=== PATIENT | male | born 1975 | race Two or more races ===

== ENCOUNTER 2019-09-17 10:36 | Inpatient (IN) | payer MEDICAID ==
[~2019-09-17] VITALS: Ht 170.2 cm; Wt 77.6 kg
--- NOTE | 2019-09-17 10:45 | NUR ---
RN MS NOTES RECEIVED PT FROM [facility]IA [facility] ACCOMPLANIED BY 2 AMBULANCE PERSONNEL, PT IS AWAKE, ALERT AND ORIENTED, REPORTS MID EPIGASTRIC PAIN 8/10, NO SHORTNESS OF BREATH, NO COMPLAINT OF NAUSEA, ASSISTED TO BED, MADE COMFORTABLE, ROOM SET UP ORIENTATION PROVIDED TO PT, VERBALIZED UNDERSTANDING, KEPT COMFORTABLE IN BED, AWAITING ADMITTING ORDERS FROM , DR. ROSARIO AND DR. Constantino MEDINA INFORMED.
[2019-09-17] MEDS ORDERED: Z GUARD REMEDY 2 OZ OINT TP PRN (12:00)
[2019-09-17] MEDS ORDERED: ACETAMINOPHEN 325 MG TABLET PO PRN (12:00)
[2019-09-17] MEDS ORDERED: MAGNESIUM HYDROXIDE 30 ML UDC PO PRN (12:00)
[2019-09-17] MEDS ORDERED: PIPERACILLIN /TAZOBACTAM 4.5 G in IV D5W 50 ML IV SCH (12:00)
[2019-09-17] MEDS ORDERED: HYDROCODONE/APAP 5/325MG 1 EACH TABLET PO PRN (12:00)
[2019-09-17] MEDS ORDERED: MAG HYDROX/AL HYDROX/SIMETH 30 ML UDC PO PRN (12:00)
[2019-09-17] MEDS: IV NS 0.9% 1,000 ML IV PRN (12:26)
--- NOTE | 2019-09-17 12:38 | NUR ---
RN MS NOTES PT IN BED, AWAKE, ALERT AND ORIENTED, NOT IN DISTRESS, [employer]' MODEL AT BEDSIDE, PLAN OF CARE BEING DISCUSSED WITH PT, VERBALIZED UNDERSTANDING.
[2019-09-17] MEDS: MORPHINE SULFATE INJ 2 MG/ML DISP.SYRIN IV PRN ×3 (12:45→20:38)
[2019-09-17] MEDS ORDERED: LEVOFLOXACIN (750 MG) 750 MG TABLET PO SCH (15:00)
[2019-09-17] MEDS: LEVOFLOXACIN 750 MG /D5W 150ML 750 MG in PREMIX 1 EA IV SCH (15:17)
[2019-09-17 16:00] VITALS: BP 112/63
[2019-09-17] MEDS: METRONIDAZOLE 500MG/ NS 100ML 500 MG in PREMIX 1 EA IV SCH (17:21)
--- NOTE | 2019-09-17 18:33 | NUR ---
RN MS NOTES PT IN BED, RESTING, PAIN MEDICATION GIVEN FOR PAIN MANAGEMENT, BREATHING PATTERN NORMAL, CALL LIGHT WITHIN REACH, IV FLUIDS INFUSING WELL, STARTED ON IV ATB LEVAQUIN AND FLAGYL, TOLERATED WELL, NO ADVERSE REACTION NOTED, PER DR. ROSARIO, KEEP PT NPO, NOTED AND CARRIED OUT, PT INFORMED, NO COMPLAINT OF NAUSEA OR VOMITING, ALL NEEDS ATTENDED.
--- NOTE | 2019-09-17 19:15 | NUR ---
M/S RN NOTES PATIENT RESTING IN BED, NO RESPIRATORY DISTRESS, PAIN TOLERABLE AT THIS TIME. NO N/V, SKIN WARM TO TOUCH, IV ACCESS SITE INTACT AND PATENT IV NS INFUSING AT 75ML/HR. PATIENT'S NEEDS ATTENDED, BED ON LOWEST LOCKED POSITION, CALL LIGHT WITHIN REACH. WILL CONTINUE TO MONITOR.
[2019-09-18] MEDS: METRONIDAZOLE 500MG/ NS 100ML 500 MG in PREMIX 1 EA IV SCH ×3 (00:39→17:44)
[2019-09-18] MEDS: MORPHINE SULFATE INJ 2 MG/ML DISP.SYRIN IV PRN ×6 (01:59→23:07)
[2019-09-18] MEDS: IV NS 0.9% 1,000 ML IV PRN ×2 (05:45→22:14)
[2019-09-18 06:12] LABS: BASOPHILS % (AUTO) 0.4 % (0.0-2.0); EOSINOPHILS % (AUTO) 4.5 % (0.0-6.0); HEMATOCRIT 41 % (39-51); HEMOGLOBIN 13.8 g/dL (13.5-17.5); LYMPHOCYTES # (AUTO) 2.1 /CMM (0.8-4.8); LYMPHOCYTES % (AUTO) 39.5 % (20.0-44.0); MEAN CORPUSCULAR HGB CONC 34 g/dl (31.0-36.0); MEAN CORPUSCULAR VOLUME 93 fL (80-96); MONOCYTES # (AUTO) 0.5 /CMM (0.1-1.30); MONOCYTES % (AUTO) 9.3 % (2.0-12.0); NEUTROPHILS # (AUTO) 2.5 /CMM (1.8-8.9); NEUTROPHILS % (AUTO) 46.3 % (43.0-81.0); PLATELET COUNT (AUTO) 172 /CMM (150-450); RED BLOOD CELL COUNT(AUTO) 4.37 MIL/uL (4.5-6.0); WHITE BLOOD COUNT (AUTO) 5.4 K/uL (4.3-11.0)
[2019-09-18 06:34] LABS: ALBUMIN 2.7 g/dL (3.4-5.0); BILIRUBIN,TOTAL 0.4 mg/dL (0.2-1.0); MAGNESIUM 1.9 mg/dL (1.8-2.4); PHOSPHORUS 3.4 mg/dL (2.5-4.9); POTASSIUM 3.9 mmol/L (3.5-5.1); TOTAL PROTEIN, SERUM 5.6 g/dL (6.4-8.2)
--- NOTE | 2019-09-18 06:49 | NUR ---
M/S RN NOTES PATIENT RESTING IN BED, NO RESPIRATORY DISTRESS, PAIN TOLERABLE AT THIS. SKIN WARM TO TOUCH, IV ACCESS SITE INTACT AND PATENT. PATIENT'S NEEDS ATTENDED, BED ON LOWEST LOCKED POSITION, CALL LIGHT WITHIN REACH. WILL ENDORSE TO ONCOMING NURSE
[2019-09-18 08:00] VITALS: BP 100/63
--- NOTE | 2019-09-18 08:00 | NUR ---
MS/RN OPENING NOTE Patient is resting in bed, A/O x4, showing no signs of acute distress or SOB, saturating 100% on RA. Patient is complaining of 8/10 pain in his lower abdominal area. IV line is clean and intact running NS @ 75ml/hr. Bed is in lowest position, side rails x2 in upright position, call light is within reach and patient is aware of how to call for assistance when needed. Will continue with plan of care.
[2019-09-18] MEDS: LEVOFLOXACIN 750 MG /D5W 150ML 750 MG in PREMIX 1 EA IV SCH (15:18)
[2019-09-18 16:59] VITALS: BP 112/72
--- NOTE | 2019-09-18 19:05 | NUR ---
MS RN NOTES RECEIVED PT IN BED AWAKE AND ABLE TO MAKE NEEDS KNOWN. PT A/O X3. RESPIRATIONS EVEN AND UNLABORED WITH NO S/S OF ACUTE DISTRESS OR SOB NOTED. NO COMPLAINTS OF PAIN AT THIS TIME. PT NOTED WITH IV RAC 20G PATENT AND INTACT INFUSING NS 75CC/HR. SAFETY MEASURES IN PLACE WITH BED IN LOWEST LOCKED POSITION WITH SIDE RAILS UP X2. CALL LIGHT WITHIN REACH. WILL CONTINUE TO MONITOR.
--- NOTE | 2019-09-18 19:32 | NUR ---
MS/RN CLOSING NOTE Patient is resting in bed, A/O x4, showing no signs of acute distress or SOB, saturating 100% on RA. IV line is clean and intact running NS @ 75ml/hr. Bed is in lowest position, side rails x2 in upright position, call light is within reach and patient is aware of how to call for assistance when needed.All patient needs met, all due meds given. Will endorse to clinical editor.
[2019-09-18] MEDS: ONDANSETRON HCL/PF 4 MG/2 ML VIAL IVP PRN (19:43)
[2019-09-18 20:09] VITALS: BP 109/75
[2019-09-19] MEDS: ZOLPIDEM TARTRATE 5 MG TABLET PO PRN ×2 (00:23→21:18)
[2019-09-19] MEDS: METRONIDAZOLE 500MG/ NS 100ML 500 MG in PREMIX 1 EA IV SCH ×3 (01:35→16:18)
[2019-09-19] MEDS: MORPHINE SULFATE INJ 2 MG/ML DISP.SYRIN IV PRN ×4 (05:44→20:36)
--- NOTE | 2019-09-19 07:13 | NUR ---
MS RN NOTES PT IN BED AWAKE AND ABLE TO MAKE NEEDS KNOWN. PT A/O X3. RESPIRATIONS EVEN AND UNLABORED WITH NO S/S OF ACUTE DISTRESS OR SOB NOTED THROUGHOUT SHIFT. NO COMPLAINTS OF PAIN AT THIS TIME. PT NOTED WITH IV RAC 20G PATENT AND INTACT INFUSING NS 75CC/HR. SAFETY MEASURES IN PLACE WITH BED IN LOWEST LOCKED POSITION WITH SIDE RAILS UP X2. CALL LIGHT WITHIN REACH. WILL ENDORSE TO ONCOMING NURSE FOR CHLOÉ.
--- NOTE | 2019-09-19 07:32 | NUR ---
RN OPENING NOTE PT WAS RECEIVED IN BED AT LOWEST AND LOCKED POSITION WITH SIDE RAILS X2, A/O X3 BREATHING EVEN AND UNLABORED ON RA WITH NO S/S OF ANY DISTRESS OR PAIN NOTED AT THIS TIME, IV IS PATENT AND INTACT WITH IVF RUNNING, ON CLEAR LIQUIDS AND INFORMED BY PT THAT HE WAS ABLE TO TOLERATE SOME LIQUID BUT STATED HE PROBABLY ATE TO FAST WHICH CAUSE SOME DISCOMFORT, SAFETY PRECAUTIONS IN PLACE, CALL LIGHT IN REACH, WILL MONITOR ACCORDINGLY
[2019-09-19 09:16] VITALS: BP 105/65
[2019-09-19 09:38] LABS: BASOPHILS % (AUTO) 0.5 % (0.0-2.0); EOSINOPHILS % (AUTO) 4.7 % (0.0-6.0); HEMATOCRIT 44 % (39-51); HEMOGLOBIN 14.8 g/dL (13.5-17.5); LYMPHOCYTES # (AUTO) 1.6 /CMM (0.8-4.8); LYMPHOCYTES % (AUTO) 32.4 % (20.0-44.0); MEAN CORPUSCULAR HGB CONC 34 g/dl (31.0-36.0); MEAN CORPUSCULAR VOLUME 93 fL (80-96); MONOCYTES # (AUTO) 0.5 /CMM (0.1-1.30); MONOCYTES % (AUTO) 9.3 % (2.0-12.0); NEUTROPHILS # (AUTO) 2.6 /CMM (1.8-8.9); NEUTROPHILS % (AUTO) 53.1 % (43.0-81.0); PLATELET COUNT (AUTO) 198 /CMM (150-450); RED BLOOD CELL COUNT(AUTO) 4.73 MIL/uL (4.5-6.0)
[2019-09-19 09:51] LABS: CALCIUM, SERUM 8.5 mg/dL (8.5-10.1); CREATININE 1.2 mg/dL (0.6-1.3); POTASSIUM 4.3 mmol/L (3.5-5.1)
[2019-09-19] MEDS: LEVOFLOXACIN 750 MG /D5W 150ML 750 MG in PREMIX 1 EA IV SCH (14:06)
[2019-09-19 17:04] VITALS: BP 119/74
--- NOTE | 2019-09-19 18:18 | NUR ---
RN CLOSING NOTE PT IN BED AT LOWEST AND LOCKED POSITION WITH SIDE RAILS X2, A/O X3 BREATHING EVEN AND UNLABORED ON RA WITH NO DISTRESS OR PAIN AT THIS TIME, IV IS PATENT AND INTACT WITH IVF RUNNING, SAFETY PRECAUTIONS IN PLACE, CALL LIGHT IN REACH, ALL NEEDS ATTENDED TO, WILL ENDORSE TO NIGHT RN FOR CHLOÉ.
--- NOTE | 2019-09-19 19:50 | NUR ---
MS RN NOTE: PATIENT RESTING IN BED, NO ACUTE DISTRESS NOTED. BREATHING EVEN AND UNLABORED, NO SOB NOTED. IV TO RAC IN PLACE. BED LOCKED AND IN LOWEST POSITION, CALL LIGHT IN REACH. WILL CONTINUE TO MONITOR.
[2019-09-19 20:09] VITALS: BP 114/70
[2019-09-19] MEDS: IV NS 0.9% 1,000 ML IV PRN (20:36)
--- NOTE | 2019-09-19 20:40 | NUR ---
MS RN NOTE: PATIENT COMPLAINS OF ABDOMINAL PAIN 03/29, MORPHINE 1MG IV GIVEN PER MD ORDER. WILL CONTINUE TO MONITOR.
--- NOTE | 2019-09-19 21:20 | NUR ---
MS RN NOTE: PATIENT REQUEST FOR SLEEPING MEDICATION, AMBIEN 5MG ORAL GIVEN PER MD ORDER. WILL CONTINUE TO MONITOR.
[2019-09-20] MEDS: METRONIDAZOLE 500MG/ NS 100ML 500 MG in PREMIX 1 EA IV SCH ×3 (00:19→16:01)
[2019-09-20] MEDS: MORPHINE SULFATE INJ 2 MG/ML DISP.SYRIN IV PRN ×5 (00:27→20:21)
--- NOTE | 2019-09-20 00:35 | NUR ---
MS RN NOTE: PATIENT COMPLAINS OF ABDOMINAL PAIN 03/29, MORPHINE 1MG IV GIVEN PER MD ORDER. WILL CONTINUE TO MONITOR.
--- NOTE | 2019-09-20 06:05 | NUR ---
MS RN NOTE: PATIENT RESTING IN BED, NO ACUTE DISTRESS NOTED. BREATHING EVEN AND UNLABORED, NO SOB NOTED. IV TO RAC IN PLACE, INFUSING NS AT 75ML/HR. BED LOCKED AND IN LOWEST POSITION, CALL LIGHT IN REACH. WILL ENDORSE TO DAY NURSE TO CONTINUE WITH PLAN OF CARE.
--- NOTE | 2019-09-20 06:45 | NUR ---
MS RN NOTE: PATIENT COMPLAINS OF ABDOMINAL PAIN 03/29, MORPHINE 1MG IV GIVEN PER MD ORDER. WILL ENDORSE TO DAY NURSE.
--- NOTE | 2019-09-20 07:10 | NUR ---
RN OPENING NOTE PT WAS RECEIVED IN BED AT LOWEST AND LOCKED POSITION WITH SIDE RAILS X2, A/O X4 BREATHING EVEN AND UNLABORED ON RA WITH NO S/S OF ANY DISTRESS OR PAIN NOTED AT THIS TIME, IV IS PATENT AND INTACT WITH IVF RUNNING, ON FULL LIQUIDS, SAFETY PRECAUTIONS IN PLACE, CALL LIGHT IN REACH, WILL MONITOR ACCORDINGLY
[2019-09-20 08:00] VITALS: BP 117/80
[2019-09-20] MEDS: IV NS 0.9% 1,000 ML IV PRN (11:03)
[2019-09-20] MEDS: LEVOFLOXACIN 750 MG /D5W 150ML 750 MG in PREMIX 1 EA IV SCH (14:44)
--- NOTE | 2019-09-20 14:44 | NUR ---
RN NOTE PT WAS SEEN BY SHAHLA SIMMONS FROM SURGICAL TEAM AT THIS TIME AND CLEARED FROM THEIR STANDPOINT
[2019-09-20 16:00] VITALS: BP 112/65
--- NOTE | 2019-09-20 19:00 | NUR ---
MS RN NOTE RECEIVED PT IN STABLE CONDITION A/O X4, NOTED IN BED WATCHING TV. NO SIGNS OF SOB OR DISTRESS, NO C/O PAIN OR N/V. IV IN R HAND #[address] WITH IVF INFUSING. ALL CURRENT NEEDS ATTENDED TO. BED LOW, LOCKED, UPPER RAILS UP AND CALL LIGHT WITHIN REACH. WILL CONT. TO MONITOR.
[2019-09-20] MEDS: ONDANSETRON HCL/PF 4 MG/2 ML VIAL IVP PRN (19:23)
[2019-09-20 20:00] VITALS: BP 108/68
[2019-09-20] MEDS: ZOLPIDEM TARTRATE 5 MG TABLET PO PRN (21:17)
[2019-09-21] MEDS: METRONIDAZOLE 500MG/ NS 100ML 500 MG in PREMIX 1 EA IV SCH ×2 (00:11→09:19)
[2019-09-21] MEDS: MORPHINE SULFATE INJ 2 MG/ML DISP.SYRIN IV PRN ×5 (00:20→20:40)
[2019-09-21] MEDS: IV NS 0.9% 1,000 ML IV PRN (05:41)
--- NOTE | 2019-09-21 06:42 | NUR ---
MS RN NOTE PT REMAINS IN STABLE CONDITION A/O X4, NOTED RESTING IN BED. NO SIGNS OF SOB OR DISTRESS, NO C/O PAIN OR N/V. IV IN R HAND #[address] WITH IVF INFUSING. ALL CURRENT NEEDS ATTENDED TO. BED LOW, LOCKED, UPPER RAILS UP AND CALL LIGHT WITHIN REACH. WILL CONT. TO MONITOR AND ENDORSE TO NEXT SHIFT FOR CHLOÉ.
--- NOTE | 2019-09-21 07:50 | NUR ---
MS/RN NOTE THE PATIENT IS RECEIVED IN BED. PATIENT IS ALERT AND ORIENTED X4. IN ROOM AIR AND DENIES SOB. RESPIRATION REGULAR AND UNLABORED. THE PATIENT COMPLAINS OF ABDOMINAL PAIN 7 BUT DOES NOT WANT TO TAKE PAIN MEDICATION AT THIS TIME BECAUSE HE TOOK MORPHINE 2 HOURS AGO. ABDOMEN IS SOFT AND NON-DISTENDED. THE PATIENT STATED THAT HE PASSES GAS. RIGHT HAND G 20 PATENT AND NS INFUSING AT 75ML/HR AND NO S/S INFILTRATION NOTED. BED LOW AND LOCKED. SIDE RAILS UP X3. CALL LIGHT WITHIN REACH. WILL CONTINUE TO MONITOR.
[2019-09-21 08:00] VITALS: BP 109/67
[2019-09-21] MEDS ORDERED: LEVO750T46 PO (10:34)
[2019-09-21] MEDS ORDERED: METR500T PO (10:34)
--- NOTE | 2019-09-21 11:58 | NUR ---
MS/RN NOTE REGIONAL DRIVER JESSIE IS MADE AWARE THAT THE PATIENT STILL COMPLAINS OF ABDOMINAL PAIN 02/26. RECEIVED NEW ORDER OF STAT CT ABDOMEN/PELVIS WITH PO AND IV CONTRAST. THE ORDER IS NOTED AND CARRIED OUT. PATIENT IS MADE AWARE.
[2019-09-21] MEDS ORDERED: DIATR MEGLU/DIATRIZOATE SODIUM 30 ML BOTTLE (GASTROGRAPHIN) ONE (13:04)
[2019-09-21] MEDS ORDERED: LEVOFLOXACIN (250MG) 250 MG TABLET PO SCH ×2 (14:30)
[2019-09-21] MEDS ORDERED: CT SWABBABLE VALVE TRANS SET 1 EA INFUS.SET MC ONE (17:37)
[2019-09-21] MEDS ORDERED: IOHEXOL-300 100 ML VIAL IV ONE (17:37)
[2019-09-21] MEDS ORDERED: IV NS 0.9% 250 ML IV ONE (17:37)
[2019-09-21] MEDS: METRONIDAZOLE 500 MG TABLET PO SCH (18:09)
--- NOTE | 2019-09-21 18:37 | NUR ---
MS/RN NOTE THE PATIENT IS IN BED. ALERT AND ORIENTED X4. IN ROOM AIR AND SATURATION IS AT 97%. RESPIRATION REGULAR AND UNLABORED. DENIES SOB. DENIES PAIN. ABDOMEN SOFT AND NON-DISTENDED. RIGHT HAND G 20 PATENT AND NS INFUSING AT 75ML/HR AND NO S/S INFILTRATION NOTED. LAC G 18 PATENT AND SALINE LOCKED. BED LOW AND LOCKED. SIDE RAILS UP X3. CALL LIGHT WITHIN REACH. STILL WAITING CT ABDOMEN AND PELVIS RESULTS TO FOLLOW UP TO CLEARANCE FOR DISCHARGE. PM SHIFT WILL BE ENDORSED.
--- NOTE | 2019-09-21 19:55 | NUR ---
RN OPENING NOTES RECEIVED REPORT FROM DAYSHIFT RN JONATHAN. FOUND Pt AWAKE, RESTING IN BED. NO S/S OF ACUTE DISTRESS OR SOB NOTED. Pt IS C/O PAIN AT THIS TIME, WILL CHECK WHEN THE NEXT PAIN MED IS DUE. Pt IS A/OX4, VERBAL, ABLE TO MAKE NEEDS KNOWN. IV ACCESS ON AND #20G, IVF NS RUNNING @75ML/HR; 2ND IV SITE LOCATED ON [facility], [place]. SAFETY MEASURES IN PLACE. BED LOW, LOCKED, HOB ELEVATED, SIDE RAILS UP, CALL LIGHT AND BEDSIDE TABLE WITHIN REACH. BED ALARM ON. WILL CONTINUE TO MONITOR Pt's CONDITION ANS SAFETY THROUGHOUT THE NIGHT.
[2019-09-21 20:00] VITALS: BP 113/64
[2019-09-21 21:00] VITALS: BP 113/64
[2019-09-21] MEDS: ZOLPIDEM TARTRATE 5 MG TABLET PO PRN (22:49)
[2019-09-22] MEDS: METRONIDAZOLE 500 MG TABLET PO SCH ×2 (01:07→08:32)
[2019-09-22] MEDS: MORPHINE SULFATE INJ 2 MG/ML DISP.SYRIN IV PRN (01:38)
[2019-09-22] MEDS: IV NS 0.9% 1,000 ML IV PRN (04:59)
--- NOTE | 2019-09-22 06:58 | NUR ---
RN CLOSING NOTES NO SIGNIFICANT CHANGES IN Pt's CONDITION. NO S/S OF ACUTE DISTRESS OR SOB NOTED DURING THE NIGHT. Pt REMAINED STABLE PER BASELINE. ALL NEEDS MET AND ATTENDED TO. SAFETY MEASURES IN PLACE. Pt RESTING IN BED. WILL ENDORSE TO DAYSHIFT RN FOR Pt's CHLOÉ.
--- NOTE | 2019-09-22 07:40 | NUR ---
MS/RN NOTE THE PATIENT IS RECEIVED IN BED. PATIENT IS ALERT AND ORIENTED X4. IN ROOM AIR AND DENIES SOB. RESPIRATION REGULAR AND UNLABORED. DENIES PAIN. THE PATIENT IS IN NO APPARENT DISTRESS. RIGHT HAND G 20 PATENT AND NS INFUSING AT 75ML/HR AND NO S/S INFILTRATION NOTED. LAC G 18 PATENT AND SALINE LOCKED. BED LOW AND LOCKED. SIDE RAILS UP X3. CALL LIGHT WITHIN REACH. WILL CONTINUE TO MONITOR.
[2019-09-22 08:00] VITALS: BP 130/68
--- NOTE | 2019-09-22 14:30 | NUR ---
MS/RN NOTE THE PATIENT IS ALERT AND ORIENTED X4. DENIES PAIN. ABDOMEN SOFT AND NON-DISTENDED. RESPIRATION EVEN AND UNLABORED. DENIES SOB. THE PATIENT IN NO APPARENT DISTRESS. DISCHARGE EDUCATION PROVIDED TO THE PATIENT AND HE VERBALIZED UNDERSTANDING. THE PATIENT IS GIVEN PRESCRIPTION AND COPY IS KEPT IN THE CHART. THE PATIENT LEFT THE HOSPITAL ON [facility]BER AND IN STABLE CONDITION.
== END 2019-09-22 18:24 | disposition home or self-care (01) | DRG 254 ==
LOC: MEDSG2 10:36
PROVIDERS: ADMIT Internal Medicine; ATTEND Student in an Organized Health Care Education/Training Program
DX: K35.80 Unspecified acute appendicitis (principal); K56.7 Ileus, unspecified; K76.0 Fatty (change of) liver, not elsewhere classified; Z98.890 Other specified postprocedural states; V89.2XXS Person injured in unspecified motor-vehicle accident, traffic, sequela
CPT/HCPCS: 36415; 80048-TC; 80053-TC; 80061-TC; 83735-TC; 84100-TC; 85025-TC; 87081-TC; A4216; G0378; J1956; J2270; J2405; J2543; J7030; J7050; J7060; Q9963; Q9967

== ENCOUNTER 2019-11-05 10:44 | Emergency (ER) | payer MEDICAID ==
[~2019-11-05] VITALS: Ht 170.2 cm; Wt 74.8 kg
[~2019-11-05 10:44] MED LIST: LEVO750T46 PO; METR500T PO
--- NOTE | 2019-11-05 10:50 | NUR ---
Patient came in to the er c/o left middle finger pain s/p hit a gas pedal while cleaning his car 02/26 ps, on room air, breathing evenly and unlabored. kept comfortable, will continue to monitor accordingly.
[2019-11-05] MEDS ORDERED: KETOROLAC TROMETHAMINE INJ 30 MG/ML VIAL ONE (11:10)
[2019-11-05 11:30] VITALS: BP 125/81
[2019-11-05] MEDS ORDERED: KETOROLAC TROMETHAMINE INJ 60 MG/2 ML VIAL IM ONE (11:30)
--- NOTE | 2019-11-05 11:30 | NUR ---
Patient discharged to home in stable condition. Written and verbal after care instructions given. Patient verbalizes understanding of instruction.
== END 2019-11-05 11:30 | disposition home or self-care (01) ==
LOC: ER 10:45
DX: S63.693A Other sprain of left middle finger, initial encounter (principal); Z98.890 Other specified postprocedural states; Z88.1 Allergy status to other antibiotic agents; W22.8XXA Striking against or struck by other objects, initial encounter; Y93.89 Activity, other specified; Y92.89 Other specified places as the place of occurrence of the external cause; Y99.8 Other external cause status
CPT/HCPCS: 29130; 73130; 96372; 99283; J1885

== ENCOUNTER 2019-11-24 13:43 | Emergency (ER) | payer MEDICAID ==
[~2019-11-24] VITALS: Ht 170.2 cm; Wt 74.8 kg
--- NOTE | 2019-11-24 14:25 | NUR ---
PT BIB SELF C/O FLANK PAIN SINCE YESTERDAY, PT IS AAOX4, NOT IN RESPIRATORY DISTRESS, HOOKED TO MONITOR, KEPT RESTED AND COMFORTABLE, WILL CONTINUE TO MONITOR.
--- NOTE | 2019-11-24 14:30 | NUR ---
URINE SPECIMEN COLLECTED AND SENT TO LAB.
[2019-11-24 14:59] LABS: BASOPHILS # (AUTO) 0.1 /CMM (0.0-0.2); EOSINOPHILS % (AUTO) 3.2 % (0.0-6.0); HEMATOCRIT 49 % (39-51); HEMOGLOBIN 16.3 g/dL (13.5-17.5); LYMPHOCYTES % (AUTO) 37.3 % (20.0-44.0); MEAN CORPUSCULAR HGB CONC 33 g/dl (31.0-36.0); MEAN CORPUSCULAR VOLUME 93 fL (80-96); MONOCYTES # (AUTO) 0.6 /CMM (0.1-1.30); MONOCYTES % (AUTO) 10.9 % (2.0-12.0); NEUTROPHILS # (AUTO) 2.6 /CMM (1.8-8.9); NEUTROPHILS % (AUTO) 47.6 % (43.0-81.0); PLATELET COUNT (AUTO) 205 /CMM (150-450); RED BLOOD CELL COUNT(AUTO) 5.25 MIL/uL (4.5-6.0); WHITE BLOOD COUNT (AUTO) 5.4 K/uL (4.3-11.0)
[2019-11-24 15:07] LABS: APPEARANCE,URINE CLEAR (CLEAR); BILIRUBIN,URINE NEGATIVE (NEGATIVE); BLOOD, URINE NEGATIVE Ery/uL (NEGATIVE); COLOR,URINE YELLOW (YELLOW); KETONES,URINE NEGATIVE (NEGATIVE); LEUKOCYTE ESTERASE ,URINE NEGATIVE (NEGATIVE); NITRITE, URINE NEGATIVE (NEGATIVE); PROTEIN,URINE NEGATIVE (NEGATIVE); UGLUCOSE NEGATIVE (NEGATIVE); UROBILINOGEN,URINE 0.2 EU/dL (0.2)
[2019-11-24 15:09] LABS: CALCIUM, SERUM 7.8 mg/dL (8.5-10.1); POTASSIUM 3.8 mmol/L (3.5-5.1)
[2019-11-24 15:15] LABS: ALBUMIN 3.4 g/dL (3.4-5.0); BILIRUBIN,DIRECT 0.1 mg/dL (0.0-0.2); BILIRUBIN,TOTAL 0.4 mg/dL (0.2-1.0); TOTAL PROTEIN, SERUM 6.1 g/dL (6.4-8.2)
[2019-11-24] MEDS ORDERED: HYDROCODONE/APAP 5/325MG 1 EACH TABLET ONE (15:27)
[2019-11-24] MEDS: HYDROCODONE/APAP 5/325MG 1 EACH TABLET PO ONE (15:37)
[2019-11-24 15:39] VITALS: BP 122/72
--- NOTE | 2019-11-24 15:39 | NUR ---
Patient discharged to home in stable condition. Written and verbal after care instructions given. Patient verbalizes understanding of instruction.
== END 2019-11-24 15:40 | disposition home or self-care (01) ==
LOC: ER 13:47
DX: R10.31 Right lower quadrant pain (principal); Z98.890 Other specified postprocedural states; Z88.1 Allergy status to other antibiotic agents; Z79.899 Other long term (current) drug therapy
CPT/HCPCS: 36415; 80048-TC; 80076-TC; 81000-TC; 85025-TC

== ENCOUNTER 2021-03-16 00:21 | Emergency (ER) | payer MEDICAID ==
[~2021-03-16] VITALS: Ht 170.2 cm; Wt 83.9 kg
[2021-03-16] MEDS ORDERED: KETOROLAC TROMETHAMINE INJ 30 MG/ML VIAL ONE (00:46)
[2021-03-16] MEDS ORDERED: ONDANSETRON HCL/PF 4 MG/2 ML VIAL ONE (00:46)
--- NOTE | 2021-03-16 00:46 | NUR ---
PATIENT CAME TO THE ER BED 10 BIBSELF C/O RIGHT BACK PAIN FOR THE PAST 2x DAYS WITH BURNING SENSATION UPON URINATION. PATIENT IS AAOX4. AMBULATORY WITH A STEADY GAIT. BREATHING EVENLY AND UNLABORED ON ROOM AIR. CONNECTED TO THE MONITOR.
[2021-03-16 00:48] LABS: BILIRUBIN,URINE Negative (NEGATIVE); COLOR,URINE YELLOW (YELLOW); LEUKOCYTE ESTERASE ,URINE Negative (NEGATIVE); NITRITE, URINE Negative (NEGATIVE); PROTEIN,URINE Negative (NEGATIVE); UGLUCOSE Negative (NEGATIVE); UROBILINOGEN,URINE 0.2 EU/dL (0.2)
--- NOTE | 2021-03-16 00:50 | NUR ---
PATIENT'S BLOOD COLLECTED AND SENT TO THE LAB.
[2021-03-16] MEDS ORDERED: IV NS 0.9% 1,000 ML BAG IV ONE (01:00)
[2021-03-16] MEDS ORDERED: ONDANSETRON HCL/PF 4 MG/2 ML VIAL IVP ONE (01:00)
[2021-03-16] MEDS ORDERED: KETOROLAC TROMETHAMINE INJ 30 MG/ML VIAL IV ONE (01:00)
[2021-03-16 01:02] LABS: BASOPHILS # (AUTO) 0.1 K/uL (0.0-0.2); BASOPHILS % (AUTO) 0.7 % (0.0-2.0); EOSINOPHILS % (AUTO) 2.5 % (0.0-6.0); HEMATOCRIT 46 % (39-51); LYMPHOCYTES # (AUTO) 2.6 K/uL (0.8-4.8); LYMPHOCYTES % (AUTO) 30.4 % (20.0-44.0); MEAN CORPUSCULAR HGB CONC 35 g/dl (31.0-36.0); MEAN CORPUSCULAR VOLUME 93 fL (80-96); MONOCYTES # (AUTO) 0.9 K/uL (0.1-1.30); MONOCYTES % (AUTO) 10.2 % (2.0-12.0); NEUTROPHILS # (AUTO) 4.8 K/uL (1.8-8.9); NEUTROPHILS % (AUTO) 56.2 % (43.0-81.0); PLATELET COUNT (AUTO) 214 K/uL (150-450); RED BLOOD CELL COUNT(AUTO) 4.95 MIL/uL (4.5-6.0); WHITE BLOOD COUNT (AUTO) 8.6 K/uL (4.3-11.0)
[2021-03-16 01:08] LABS: CALCIUM, SERUM 8.5 mg/dL (8.5-10.1); CREATININE 1.1 mg/dL (0.6-1.3); POTASSIUM 3.9 mmol/L (3.5-5.1)
[2021-03-16 01:14] LABS: ALBUMIN 3.4 g/dL (3.4-5.0); BILIRUBIN,DIRECT 0.1 mg/dL (0.0-0.2); BILIRUBIN,TOTAL 0.4 mg/dL (0.2-1.0)
--- NOTE | 2021-03-16 01:25 | NUR ---
returned from ct
[2021-03-16] MEDS ORDERED: MAG HYDROX/AL HYDROX/SIMETH 30 ML UDC ONE (02:37)
[2021-03-16] MEDS ORDERED: LIDOCAINE VISCOUS 2% UD 15 ML UDC ONE (02:37)
--- NOTE | 2021-03-16 02:42 | NUR ---
Patient discharged to home in stable condition. Written and verbal after care instructions given. Patient verbalizes understanding of instruction. IV removed. Catheter intact and site benign. Pressure and 4x4 applied to site. No bleeding noted. Pt ambulatory with a steady gait
[2021-03-16 02:47] VITALS: BP 110/78
[2021-03-16] MEDS ORDERED: MAG HYDROX/AL HYDROX/SIMETH 30 ML UDC PO ONE (03:00)
== END 2021-03-16 02:48 | disposition home or self-care (01) ==
LOC: ER 00:23
DX: M54.9 Dorsalgia, unspecified (principal); R30.0 Dysuria; Z98.890 Other specified postprocedural states; Z88.1 Allergy status to other antibiotic agents; Z79.899 Other long term (current) drug therapy
CPT/HCPCS: 36415; 74176; 80048; 80076; 81003; 83690; 85025; 96361; 96374; 96375; 99284; J1885; J2405; J7030